=== PATIENT | female | born 1965 | race Caucasian/White ===

== ENCOUNTER 2023-06-24 04:14 | Day surgery (SDC) | payer OTHER ==
[2023-06-21 09:30] VITALS: BMI 31.7
[2023-06-24] MEDS ORDERED: MIDAZOLAM HCL 2 MG/2 ML SINGLE DOSE VIAL ONE (09:44)
[2023-06-24] MEDS ORDERED: ONDANSETRON 4 MG/2 ML VIAL ONE (09:49)
[2023-06-24] MEDS ORDERED: PROPOFOL 20 ML ONE (09:58)
[2023-06-24 11:05] VITALS: RESP 18
[2023-06-24 13:46] VITALS: TEMP 98.5
[2023-06-24 13:48] VITALS: BP 136/88; PULSE 72
== END 2023-06-24 13:07 | disposition home or self-care (01) ==
LOC: JASU-SURG 04:14
PROVIDERS: ATTEND Urology
PROC: 0TF3XZZ Fragmentation in Right Kidney Pelvis, External Approach (ICD-10-PCS; principal; 2023-06-24 09:30)
DX: N20.0 Calculus of kidney (principal)

== ENCOUNTER → 2024-06-24 | Day surgery (SDC) | payer OTHER | END | disposition home or self-care (01) | LOC: JRADUS-SUR 12:24 | PROVIDERS: ATTEND Obstetrics & Gynecology | PROC: 0HBU3ZX Excision of Left Breast, Percutaneous Approach, Diagnostic (ICD-10-PCS; principal; 2024-06-24) | DX: C50.812 Malignant neoplasm of overlapping sites of left female breast (principal); Z17.0 Estrogen receptor positive status [ER+]; N63.25 Unspecified lump in the left breast, overlapping quadrants | CPT/HCPCS: 19083; 19084; 76942-TC; 77065-TC; 87899; 88305-TC; 88341-TC; 88342-TC; A4648 ==

== ENCOUNTER 2024-10-21 06:15 | Day surgery (SDC) | payer OTHER ==
[2024-10-16 15:32] VITALS: BMI 30.1
[2024-10-21] MEDS ORDERED: BUPIVACAINE HCL/PF 0.25% (2.5MG/ML) 10 ML VIAL ONE (07:27)
[2024-10-21] MEDS ORDERED: LIDOCAINE 1%/EPI 1:100000 (20 ML MULTI DOSE VIAL) ONE (07:27)
[2024-10-21] MEDS ORDERED: GENTAMICIN SO4 80 MG/2 ML VIAL ONE ×2 (07:27→10:19)
[2024-10-21] MEDS ORDERED: INDOCYANINE GREEN 25 MG/10 ML VIAL IVPUSH ONE ×2 (07:31→07:49)
[2024-10-21] MEDS ORDERED: LIDOCAINE HCL/PF 2% SDV 5ML VIAL ONE (07:33)
[2024-10-21] MEDS ORDERED: DEXAMETHASONE SOD PHOSPHATE 4 MG/1 ML VIAL ONE (07:33)
[2024-10-21] MEDS ORDERED: ONDANSETRON 4 MG/2 ML VIAL ONE (07:33)
[2024-10-21] MEDS ORDERED: PROPOFOL 40 ML ONE (07:33)
[2024-10-21] MEDS ORDERED: ROCURONIUM BROMIDE 50 MG/5 ML SYRINGE ONE ×3 (07:34→09:39)
[2024-10-21] MEDS ORDERED: MIDAZOLAM HCL 2 MG/2 ML SINGLE DOSE VIAL ONE (07:34)
[2024-10-21] MEDS ORDERED: ONDANSETRON 4 MG/2 ML VIAL IVPUSH PRN ×2 (07:45→11:53)
[2024-10-21] MEDS ORDERED: PROMETHAZINE HCL 25 MG/1 ML VIAL IVPB PRN (07:45)
[2024-10-21] MEDS ORDERED: DEXAMETHASONE SOD PHOSPHATE 10 MG/1 ML VIAL ONE (07:59)
[2024-10-21] MEDS ORDERED: ROPIVACAINE HCL 0.5% 30ML VIAL ONE (07:59)
[2024-10-21] MEDS ORDERED: BUPIVACAINE LIPOSOME/PF (EXPAREL) 266 MG/20 ML VIAL ONE (08:01)
[2024-10-21] MEDS ORDERED: VANCOMYCIN 1,000 MG VIAL (RESTRICTED TO ID ONLY) ONE ×3 (08:31→13:11)
[2024-10-21] MEDS ORDERED: SUCCINYLCHOLINE CHLORIDE 200 MG/10 ML SYRINGE ONE (08:50)
[2024-10-21] MEDS ORDERED: SUGAMMADEX SODIUM 200 MG/2 ML VIAL ONE ×2 (10:42→12:14)
[2024-10-21] MEDS ORDERED: ACETAMINOPHEN 325 MG TABLET (FP) PO PRN (11:53)
[2024-10-21] MEDS ORDERED: NALOXONE HCL 0.4 MG/ML VIAL ONE (12:20)
[2024-10-21] MEDS: LACTATED RINGERS SOLUTION 1,000 ML IV SCH (13:12)
[2024-10-21] MEDS: CEFAZOLIN 1 GM/D5W 1 GM/50 ML BAG IVPB SCH (15:10)
[2024-10-21 15:27] LABS: MCHC 33.7 g/dl (32.2-35.5); MEAN CELL VOLUME 92.1 fl (79.4-94.8); MEAN PLT VOLUME 10.0 fl (9.4-12.3); RDW 11.9 % (12.3-16.6)
[2024-10-21] MEDS: CARVEDILOL 25 MG TABLET (FP) PO SCH (21:09)
[2024-10-21 23:17] VITALS: RESP 18
[2024-10-22] MEDS: SPIRONOLACTONE 25 MG TABLET PO SCH (09:12)
[2024-10-22] MEDS: amLODIPine BESYLATE 5 MG TABLET (FP) PO SCH (09:12)
[2024-10-22] MEDS: HYDROCHLOROTHIAZIDE 12.5 MG CAPSULE (FP) PO SCH (09:12)
[2024-10-22] MEDS ORDERED: PATIENT'S OWN MEDICATION (NON-FORMULARY) (Spironolact/Hydrochlorothiazid [Spironolactone-H PO SCH (10:00)
[2024-10-22] MEDS ORDERED: PATIENT'S OWN MEDICATION (NON-FORMULARY) (Vibegron [Gemtesa] 75 MG Tablet) PO SCH (10:00)
[2024-10-22 11:33] VITALS: BP 108/72; PULSE 98; TEMP 99
== END 2024-10-22 13:39 | disposition home or self-care (01) ==
LOC: JASUSAT 06:15 → J2C 11:53 → UNDOADMIN 11:53 → J8W 17:37 → J2C 17:37 → J8W 17:37 → JASUSAT 10-22 13:39
PROVIDERS: ATTEND Surgery Surgical Oncology
PROC: 0HTV0ZZ Resection of Bilateral Breast, Open Approach (ICD-10-PCS; principal; 2024-10-21 08:00)
PROC: 0HRV0JZ Replacement of Bilateral Breast with Synthetic Substitute, Open Approach (ICD-10-PCS; 2024-10-21 08:00)
DX: C50.912 Malignant neoplasm of unspecified site of left female breast (principal)
CPT/HCPCS: 36415; 78195-TC; 85025; 86850; 86900; 86901; 94760; A9541; J0666; J1100; L8600